=== PATIENT | female | born 1985 | race Caucasian/White ===

== ENCOUNTER 2017-03-14 23:20 | Emergency (ER) | payer MEDICAID ==
[2017-03-15 01:49] VITALS: BP 123/83
== END 2017-03-15 01:49 | disposition home or self-care (01) ==
LOC: ED 23:20
DX: S13.9XXA Sprain of joints and ligaments of unspecified parts of neck, initial encounter (principal); X58.XXXA Exposure to other specified factors, initial encounter; Y93.89 Activity, other specified; Y99.8 Other external cause status; Y92.89 Other specified places as the place of occurrence of the external cause

== ENCOUNTER 2018-05-06 15:23 | Emergency (ER) | payer MEDICAID ==
[~2018-05-06] VITALS: Ht 165.1 cm; Wt 53.5 kg
[2018-05-06 15:33] VITALS: BP 112/68; Ht 165.1 cm; Wt 53.5 kg
[2018-05-06 16:16] LABS: BASOPHIL % 0.3 % (0-2); PLATELET COUNT 392 x10^3mcL (130-400)
[2018-05-06 16:23] LABS: CALCIUM 9.2 mg/dL (8.5-10.1); CHLORIDE SERUM 100 mmol/L (98-107); CREATININE SERUM 0.7 mg/dL (0.6-1.0); GFR1 > 60 mL/min; GLUCOSE SERUM 98 mg/dL (74-106); POTASSIUM SERUM 3.5 mmol/L (3.5-5.1); SODIUM SERUM 134 mmol/L (136-145)
[2018-05-06 16:30] LABS: ALKALINE PHOSPHATASE 74 U/L (46-116); ALT/SGPT 9 U/L (14-59); AST/SGOT 25 U/L (15-37); BILIRUBIN TOTAL 0.41 mg/dL (0.20-1.00); LIPASE 150 IU/L (73-393); RED CELL DISTRIBUTION WIDTH 15.2 % (11.5-14.5)
[2018-05-06 16:32] LABS: TOTAL PROTEIN, SERUM 8.6 g/dL (6.4-8.2)
== END 2018-05-06 16:54 | disposition home or self-care (01) ==
LOC: ED 15:23
PROVIDERS: Emergency Medicine
DX: R10.84 Generalized abdominal pain (principal); R11.10 Vomiting, unspecified; Z88.0 Allergy status to penicillin
CPT/HCPCS: 36415; J1885; Q0162

== ENCOUNTER 2018-07-05 00:29 | Emergency (ER) | payer MEDICAID ==
[~2018-07-05] VITALS: Ht 162.6 cm; Wt 57.2 kg
[2018-07-05 00:32] VITALS: Ht 162.6 cm; Wt 57.2 kg
[2018-07-05 01:29] VITALS: BP 111/71
== END 2018-07-05 01:30 | disposition home or self-care (01) ==
LOC: ED 00:29
DX: S60.221A Contusion of right hand, initial encounter (principal); Z88.0 Allergy status to penicillin; W22.8XXA Striking against or struck by other objects, initial encounter; Y93.89 Activity, other specified; Y92.89 Other specified places as the place of occurrence of the external cause; Y99.8 Other external cause status